=== PATIENT | male | born 1955 | race Caucasian/White ===

== ENCOUNTER 2021-11-18 01:46 | Inpatient (IN) | payer OTHER, SELFPAY ==
--- OUTSIDE RECORDS SUMMARY | 2021-11-18 01:48 | XMS REPORT | Continuity of Care Document ---
:1955 Author Organization [facility] t Address [address] [place] [address] Care Team Providers Name Role Phone GETACHEW VARGAS Attending Clinician Unavailable GETACHEW VARGAS Admitting Clinician Unavailable Payers Payer Name Policy Type Policy Number Effective Date Expiration Date [id number] 00:00:00 POS/PPO/EPO Problems This patient has no known problems. Allergies, Adverse Reactions, Alerts Allergy Allergy Status Severity Reaction(s) Onset Inactive Treating Comm ents Source Name Type Date Date Clinician NO KNOWN Allergy Active [facility] Medications This patient has no known medications. Vital Signs Vital Name Observation Time Observation Value Comments Source WEIGHT 2021-01-15 10:20:00 98.431 kg HEIGHT 2021-01-15 10:20:00 177.8 cm WEIGHT 2021-01-15 10:20:00 98.431 kg HEIGHT 2021-01-15 10:20:00 177.8 cm WEIGHT 2021-01-14 14:46:00 101.606 kg HEIGHT 2021-01-14 14:46:00 177.8 cm WEIGHT 2021-01-14 14:46:00 101.606 kg HEIGHT 2021-01-14 14:46:00 177.8 cm Procedures This patient has no known procedures. Encounters Start End Encounter Admission Attending Care Care Encounter Source Date/Time Date/Time Type Type Clinicians Facility Department ID 2021-08-17 Outpatient [facility] [id number] [facility] 06:37:32 2021-01-14 2021-01-14 Outpatient [facility] [id number] [facility] 00:00:00 00:00:00 Results Test Description Test Time Test Comments Results Result Comments Source SARS-COV2/RT-PCR ([facility]) 2021-01-15 00:21:00 Test Item Value Reference Range Interpretation Comme nts SARS-COV2/RT-PCR (test code = 1987475) Negative Not Detected, N egative, See external report for linked test SARS-COV-2 PERFORMING LAB (test code = BSC JAYDA [id number]) Negative result for this test determines that SARS-CoV-2 RNA was not present in the specimen above the Limit of Detection (LOD). However, Negative results do not preclude SARS-CoV-2 infection and should not be used as the sole basis for treatment or patient management decisions. Negative results mustbe combined with clinical observations, patient history, and epidemiological information. A false negative result may occur if a specimen is improperly collected, transported or handled. A false negative result should be considered if patient's recent exposures or clinical presentation indicate that COVID-19 (SARS-CoV-2) is likely and diagnostic tests for other causes of illness are negative. Re-testing should be considered in cases of suspected false negatives.The limit of detection for this assay is 100 copies/mL.This SARS CoV-2 test is a real-time RT-PCR test intended for the qualitative detection of nucleic acid from SARS-CoV-2 in a nasopharyngeal swab specimen collected from individuals susp ected of COVID-19 by their healthcare provider.This test has not been Food and Drug Administration (FDA) cleared or approved. This is a modified version of an approved Emergency Use Authorization (EUA) and is in the process of review by the FDA. Once authorized by the FDA, the issued EUA will be effective until the declaration that circumstances exist justifying the authorization of the emergency use of in vitro diagnostic tests for detection and/or diagnosis of COVID-19 is terminated under Section 564(b)(2) of the Act or the EUA is revoked under Section 564(g) of the Act.Testing was performed using the [employer] SARS-CoV-2 assay.Fact Sheet for Healthcare Providers:https://www.[employer] Gateway/fili/ US_HUDV-WjR-2_UZM_Astx_Oeuiz_88-397291.pdfFact Sheet for Healthcare Patients:https://www.[employer].ab surinder/fili/KE_GMNE-AyM-9_Oqrnvns_Vmzv_Abvkw_VT_17-232789Y9.pdfPerforming Laboratory:[facility] [place] [address] BASIC METABOLIC [id number] 15:36:00 Test Item Value Reference Range Interpretation Comments SODIUM (BEAKER) 140 meq/L 136-145 (test code = 381) POTASSIUM (BEAKER) 4.2 meq/L 3.5-5.1 (test code = 379) CHLORIDE (BEAKER) 107 meq/L 98-107 (test code = 382) CO2 (BEAKER) (test 25 meq/L 22-29 code = 355) BLOOD UREA NITROGEN 12 mg/dL 7-21 (BEAKER) (test code = 354) CREATININE (BEAKER) 0.97 mg/dL 0.57-1.25 (test code = 358) GLUCOSE RANDOM 149 mg/dL 70-105 H (BEAKER) (test code = 652) CALCIUM (BEAKER) 8.6 mg/dL 8.4-10.2 (test code = 697) EGFR (BEAKER) (test 78 mL/min/1.73 ESTIMA JOHAN GFR IS code = 1092) sq m NOT ACCURATE CREATININE CLEARANCE IN PREDICTING GLOMERULAR FILTRATION RATE . ESTIMATED GFR I S NOT APPLICABLE FOR DIALYSIS PATIEN TS. Machine Set Up ID - ROSEMARY FPROTHROMBIN [id number] 15:34:00 Test Item Value Reference Range Interpretation Comments PROTIME (BEAKER) 13.6 seconds 11.9-14.2 (test code = 759) INR (BEAKER) (test 1.07 See_Comment [Automat ed message] code = 370) The system [employer] generated this result transmitted ref erence range: <=5.90. The reference range was not used to int erpret this result as normal/abnormal . Effective 04/06/2019: PT Reference Range ChangeNew: 11.9-14.2 Previous: 11.7- 14.7RECOMMENDED COUMADIN/WARFARIN INR THERAPY RANGESSTANDARD DOSE: 2.0-3.0 Includes: PROPHYLAXIS for venous thrombosis, systemic embolization; TREATMENT for venous thrombosis and/or pulmonary embolus.HIGH RISK: Target INR is2.5-3.5 for patients wiht mechanical heart valves.CBC W/PLT COUNT & AUTO [id number] 15:22:00 Test Item Value Reference Range Interpretation Comments WHITE BLOOD CELL COUNT (BEAKER) 6.2 K/ L 3.5-10.5 (test code = 775) RED BLOOD CELL COUNT (BEAKER) 4.88 M/ L 4.63-6.08 (test code = 761) HEMOGLOBIN (BEAKER) (test code = 11.5 GM/DL 13.7-17.5 L 410) HEMATOCRIT (BEAKER) (test code = 37.8 % 40.1-51.0 L 411) MEAN CORPUSCULAR VOLUME (BEAKER) 77.5 fL 79.0-92.2 L (test code = 753) MEAN CORPUSCULAR HEMOGLOBIN 23.6 pg 25.7-32.2 L (BEAKER) (test code = 751) MEAN CORPUSCULAR HEMOGLOBIN CONC 30.4 GM/DL 32.3-36.5 L (BEAKER) (test code = 752) RED CELL DISTRIBUTION WIDTH 18.6 % 11.6-14.4 H (BEAKER) (test code = 412) PLATELET COUNT (BEAKER) (test 225 K/CU MM 150-450 code = 756) MEAN PLATELET VOLUME (BEAKER) 9.4 fL 9.4-12.4 (test code = 754) NUCLEATED RED BLOOD CELLS 0 /100 WBC 0-0 (BEAKER) (test code = 413) NEUTROPHILS RELATIVE PERCENT 57 % (BEAKER) (test code = 429) LYMPHOCYTES RELATIVE PERCENT 24 % (BEAKER) (test code = 430) MONOCYTES RELATIVE PERCENT 13 % (BEAKER) (test code = 431) EOSINOPHILS RELATIVE PERCENT 4 % (BEAKER) (test code = 432) BASOPHILS RELATIVE PERCENT 2 % (BEAKER) (test code = 437) NEUTROPHILS ABSOLUTE COUNT 3.52 K/ L 1.78-5.38 (BEAKER) (test code = 670) LYMPHOCYTES ABSOLUTE COUNT 1.46 K/ L 1.32-3.57 (BEAKER) (test code = 414) MONOCYTES ABSOLUTE COUNT (BEAKER) 0.81 K/ L 0.30-0.82 (test code = 415) EOSINOPHILS ABSOLUTE COUNT 0.24 K/ L 0.04-0.54 (BEAKER) (test code = 416) BASOPHILS ABSOLUTE COUNT (BEAKER) 0.11 K/ L 0.01-0.08 H (test code = 417) IMMATURE GRANULOCYTES-RELATIVE 1 % 0-1 PERCENT (BEAKER) (test code = 2801)
[2021-11-18] MEDS ORDERED: NA CHLORIDE 0.9% 1,000 ML ONE ×2 (03:22→06:15)
[2021-11-18 03:36] LABS: Protime INR 1.07
[2021-11-18 03:47] LABS: ALT/SGPT 32 U/L (12-78); AST/SGOT 16 U/L (15-37); Albumin 3.2 g/dL (3.4-5.0); Alkaline Phosphatase 78 U/L (45-117); BUN Blood Urea Nitrogen 14 mg/dL (7-18); Bicarbonate 24 mmol/L (21-32); Bilirubin Direct 0.2 mg/dL (0-0.2); Bilirubin Total 0.4 mg/dL (0.2-1.0); Glucose Level 130 mg/dL (74-106); Magnesium 2.3 mg/dL (1.8-2.4); NT PRO-BNP 255 pg/mL (<125); Sodium Level 141 mmol/L (136-145); Troponin (Emerg Dept Use Only) < 0.02 ng/mL (0.0-0.045)
[2021-11-18] MEDS ORDERED: APIXABAN 5 MG TABLET ONE (03:47)
[2021-11-18 03:59] LABS: Absolute Lymphocytes (CBC) 2.6 K/uL (0.7-4.9); Hematocrit 46.5 % (39.6-49.0); Lymphocytes % 33.5 % (15.3-44.8); MPV 7.8 fL (7.6-11.3); RBC Red Blood Cell Count 5.16 M/uL (4.33-5.43)
[2021-11-18] MEDS ORDERED: HEPARIN 5000 UNIT/ML 1 ML VIAL ONE (06:13)
[2021-11-18] MEDS ORDERED: HEPARIN/D5W 25,000 UNIT/500 ML BAG IV ONE (06:16)
--- NOTE | 2021-11-18 06:48 | ER ---
Nurse's Notes [facility] Name: Maldonado Reynolds Age: 66 yrs Sex: Male : 1955 Arrival Date: 11/18/2021 Time: 01:50 Bed 20 Private MD: Diagnosis: Other pulmonary embolism with acute cor pulmonale-SADDLE;Acute embolism and thrombosis of other specified deep vein of right lower extremity Presentation: 11/18 02:27 Chief complaint: Patient states: left ear pain worsening in severity. describes as lg3 stabbing. no medications taken at home. ear pain started yesterday. right calf swelling with pain radiating up towards groin. swelling started approximately 2 days ago. 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 took a xarelto on Thursday and Thursday that he had "left over" from previous confirmed DVT. Coronavirus screen: Client denies travel out of the [place] in the last 14 days. At this time, the client does not indicate any symptoms associated with coronavirus-19. Ebola Screen: No symptoms or risks identified at this time. Initial Sepsis Screen: Does the patient meet any 2 criteria? No. Patient's initial sepsis screen is negative. Does the patient have a suspected source of infection? No. Patient's initial sepsis screen is negative. Risk Assessment: Do you want to hurt yourself or someone else? Patient reports no desire to harm self or others. Onset of symptoms was November 16, 2021. 02:27 Method Of Arrival: Ambulatory lg3 02:27 Acuity: EARLINE 3 lg3 Triage Assessment: 02:33 General: Appears in no apparent distress. comfortable, Behavior is calm, cooperative. lg3 Pain: Complains of pain in left ear. Pain: Complains of pain in left leg Pain radiates to groin. EENT: No deficits noted. Neuro: Level of Consciousness is awake, alert, obeys commands, Oriented to person, place, time, situation, Speech is normal. Cardiovascular: Capillary refill < 3 seconds JVD is absent Patient's skin is warm and dry. Respiratory: Airway is patent Trachea midline Respiratory effort is even, unlabored, Respiratory pattern is regular, symmetrical. GI: No signs and/or symptoms were reported involving the gastrointestinal system. : No signs and/or symptoms were reported regarding the genitourinary system. Derm: Reports swelling to right calf. Musculoskeletal: Range of motion: intact in all extremities. Historical: - Allergies: 02:33 No Known Allergies; lg3 - Home Meds: 02:33 Wellbutrin 100 mg Oral tab 2 tab 2 times per day [Active]; Nexium 40 mg Oral cpDR 1 cap lg3 once daily [Active]; verapamil 80 mg Oral tab 1 tab 2x daily [Active]; - PSHx: 02:33 right foot surgery; gastric bypass; cardiac ablasion; lg3 - Immunization history:: Adult Immunizations up to date, Client reports receiving the Sohail \\T\\ Sohail single-dose vaccine. Date received February 01, 2021. - Social history:: Smoking status: Patient denies any tobacco usage or history of. Screenin:04 Abuse screen: Denies threats or abuse. Denies injuries from another. Nutritional raymundo screening: No deficits noted. Tuberculosis screening: No symptoms or risk factors identified. Fall Risk None identified. Exposure risk/Travel Screening: Has been out of the country: The pt traveled on a 16 hour flight from [facility], on the Oct. He reports,"I didn't walk around much". . Assessment: 03:04 Reassessment: Patient appears in no apparent distress at this time. General: Appears in raymundo no apparent distress. comfortable, Behavior is calm, cooperative, appropriate for age. Pain: Denies pain. Cardiovascular: Reports The pt has swelling to bilateral lower ext, rt>lt. The pt denies any pain to legs. Respiratory: No deficits noted. GI: No deficits noted. : No deficits noted. EENT: Reports Pt reports piercing ear pain to left ear x 1 day. . 06:44 General: The pt and his were informed that he has a PE. The pt and his raymundo acknowledged understanding and tx began. . 19:30 Reassessment: Patient appears in no apparent distress at this time. No changes from mk previously documented assessment. Patient and/or family updated on plan of care and expected duration. Pain level reassessed. this RN received report from previous RN. 19:30 General: Appears comfortable. Pain: Denies pain. Cardiovascular: Reports Denies chest mk pain, lightheadedness, shortness of breath, Heart tones S1 S2 present Capillary refill < 3 seconds fingers toes Patient's skin is warm and dry. Pulses are 2+ in right radial artery, right dorsalis pedis artery, left radial artery and left dorsalis pedis artery Edema is absent. Rhythm is sinus rhythm. GI: Abdomen is flat, non-distended, Bowel sounds present X 4 quads. : Urine is clear. Derm: No signs and/or symptoms reported regarding the dermatologic system. Musculoskeletal: Capillary refill < 3 seconds, fingers. toes. Range of motion: intact in all extremities. 20:30 Reassessment: No changes from previously documented assessment. Patient and/or family mk updated on plan of care and expected duration. Pain level reassessed. Patient is alert, oriented x 3, equal unlabored respirations, skin warm/dry/pink. 21:30 Reassessment: Patient appears in no apparent distress at this time. No changes from mk previously documented assessment. Patient and/or family updated on plan of care and expected duration. Pain level reassessed. Patient is alert, oriented x 3, equal unlabored respirations, skin warm/dry/pink. 22:30 Reassessment: No changes from previously documented assessment. Patient and/or family mk updated on plan of care and expected duration. Pain level reassessed. Patient is alert, oriented x 3, equal unlabored respirations, skin warm/dry/pink. 23:30 Reassessment: Patient appears in no apparent distress at this time. No changes from mk previously documented assessment. Patient and/or family updated on plan of care and expected duration. Pain level reassessed. 11/19 00:30 Reassessment: Patient appears in no apparent distress at this time. No changes from mk previously documented assessment. Patient and/or family updated on plan of care and expected duration. Pain level reassessed. 01:30 Reassessment: Patient appears in no apparent distress at this time. Patient and/or mk family updated on plan of care and expected duration. Pain level reassessed. Patient is alert, oriented x 3, equal unlabored respirations, skin warm/dry/pink. 02:30 Reassessment: No changes from previously documented assessment. Patient and/or family mk updated on plan of care and expected duration. Pain level reassessed. Patient is alert, oriented x 3, equal unlabored respirations, skin warm/dry/pink. 03:16 Reassessment: No changes from previously documented assessment. Patient and/or family mk updated on plan of care and expected duration. Pain level reassessed. Patient is alert, oriented x 3, equal unlabored respirations, skin warm/dry/pink. 04:30 Reassessment: No changes from previously documented assessment. Patient and/or family mk updated on plan of care and expected duration. Pain level reassessed. Patient is alert, oriented x 3, equal unlabored respirations, skin warm/dry/pink. 05:30 Reassessment: No changes from previously documented assessment. Patient and/or family mk updated on plan of care and expected duration. Pain level reassessed. Patient is alert, oriented x 3, equal unlabored respirations, skin warm/dry/pink. 06:30 Reassessment: No changes from previously documented assessment. Patient and/or family mk updated on plan of care and expected duration. Pain level reassessed. Patient is alert, oriented x 3, equal unlabored respirations, skin warm/dry/pink. Vital Signs: 11/18 02:27 BP 136 / 89; Pulse 75; Resp 18; Temp 97.9(O); Pulse Ox 97% on R/A; Weight 88.45 kg (R); lg3 Height 5 ft. 10 in. (177.80 cm) (R); Pain 3/10; 03:16 BP 132 / 86; Pulse 73; Resp 18; Temp 98.6; Pulse Ox 100% on R/A; Pain 0/10; raymundo 04:23 BP 139 / 75; Pulse 72; Resp 18; Temp 98.5; Pulse Ox 97% ; raymundo 05:21 BP 144 / 97; Pulse 73; Resp 18; Pulse Ox 96% on R/A; Pain 0/10; raymundo 06:45 BP 155 / 86; Pulse 76; Resp 18; Pulse Ox 100% on R/A; raymundo 09:42 BP 150 / 79; Pulse 67; Resp 18; Pulse Ox 97% on R/A; raymundo 19:30 BP 143 / 83; Pulse 70; Resp 18; Pulse Ox 95% on R/A; mk 20:30 BP 131 / 72; Pulse 70; Resp 18; Pulse Ox 97% on R/A; mk 21:30 BP 152 / 90; Pulse 69; Resp 18; Pulse Ox 98% on R/A; mk 22:30 BP 121 / 74; Pulse 74; Resp 18; Pulse Ox 96% on R/A; mk 23:30 BP 140 / 80; Pulse 69; Resp 18; Pulse Ox 98% on R/A; mk 11/19 00:30 BP 126 / 71; Pulse 69; Resp 21; Pulse Ox 95% on R/A; mk 01:30 BP 153 / 83; Pulse 71; Resp 18; Pulse Ox 96% on R/A; mk 02:30 BP 132 / 71; Pulse 81; Resp 19; Pulse Ox 97% on R/A; mk 04:30 BP 142 / 71; Pulse 71; Resp 18; Pulse Ox 98% on R/A; mk 05:30 BP 148 / 74; Pulse 78; Resp 18; Pulse Ox 98% on R/A; mk 11/18 02:27 Body Mass Index 27.98 (88.45 kg, 177.80 cm) lg3 ED Course: 11/18 01:50 Patient arrived in ED. bp1 02:33 Triage completed. lg3 02:33 Arm band placed on. lg3 02:49 Donny Mckeon MD is Attending Physician. dylan 03:11 No provider procedures requiring assistance completed. Inserted saline lock: 20 gauge raymundo in right antecubital area, using aseptic technique. 03:12 Troponin (emerg Dept Use Only) Sent. raymundo 03:12 PT-INR Sent. raymundo 03:12 NT PRO-BNP Sent. raymundo 03:12 Magnesium Sent. raymundo 03:12 LFT's Sent. raymundo 03:12 CBC with Diff Sent. rayumndo 03:12 Basic Metabolic Panel Sent. raymundo 03:16 US at bedside. raymundo 03:16 Patient has correct armband on for positive identification. Placed in gown. Bed in low raymundo position. Call light in reach. athletic monitor on. Pulse ox on. NIBP on. Noise minimized. 03:16 Inserted. raymundo 03:19 Anya Chi, RN is Primary Nurse. raymundo 03:41 US tech has completed her study. raymundo 03:44 US Extremity Venous W Compression Uday In Process Unspecified. EDMS 03:47 Basic Metabolic Panel Sent. raymundo 03:47 CBC with Diff Sent. raymundo 03:47 LFT's Sent. raymundo 03:47 Magnesium Sent. raymundo 03:47 NT PRO-BNP Sent. raymundo 03:47 Troponin (emerg Dept Use Only) Sent. raymundo 04:51 CT Chest For PE Angio In Process Unspecified. EDMS 05:16 XRAY Chest (1 view) In Process Unspecified. EDMS 06:12 Valdemar Anne MD is Referral Physician. dylan 06:44 Jorge Booker MD is Hospitalizing Provider. dylan 06:44 SARS-COV-2 RT PCR (Document "Date of Onset" if Symptomatic) Sent. raymundo 06:58 SARS-COV-2 RT PCR (Document "Date of Onset" if Symptomatic) Sent. raymundo 07:28 Primary Nurse role handed off by Anya Chi, IRMA bd 09:50 Echocardiogram with doppler done by emergency medical tech. tc 11:52 Inserted saline lock:. salter 19:57 Porsche Abreu, RN is Primary Nurse. mk 11/19 14:52 IV discontinued, intact, Pressure dressing applied. salter Administered Medications: 11/18 03:13 Drug: NS 0.9% 1000 ml Route: IV; Rate: 75 ml/hr; Site: right antecubital; raymundo 03:46 Drug: Eliquis (apixaban) 10 mg Route: PO; raymundo 04:23 Follow up: Response: No adverse reaction raymundo 04:34 Follow up: Response: No adverse reaction raymundo 05:21 Follow up: Response: No adverse reaction raymundo 06:15 Drug: Heparin (DVT/PE- Bolus per protocol) - HEParin 80 units/kg {Co-Signature: raymunod tw5 (Anya Chi RN).} Route: IVP; Site: right antecubital; 09:11 Follow up: Response: No adverse reaction raymundo 06:17 Drug: Heparin (DVT/PE Drip) 18 units/kg/hr - (HEParin 19820 units, D5W 500 ml) tw5 {Co-Signature: raymundo (Anya Chi RN).} Route: IV; Rate: per protocol; Site: right antecubital; 06:43 Drug: NS 0.9% 1000 ml Route: IV; Rate: 1 bolus; Site: right antecubital; raymundo Outcome: 06:12 Discharge ordered by . dylan 06:48 Decision to Hospitalize by Provider. dylan 11/19 14:52 Discharged to home salter Condition: good Discharge instructions given to patient, Prescriptions given X 3. 14:52 Patient left the ED. salter Signatures: Dispatcher [employer] [facility] Brittany Cheung Corey, MD MD cha Callis, Tiffany, EKG Tech EKG Ttc Carmen Deshpande, IRMA SOLIS lg3 Keyonna, Lnig Jackson tw5 Anya Chi RN RN bo Au-Stager, Heather, RN Porsche Betancur, IRMA fonseca Corrections: (The following items were deleted from the chart) :11/18 20:30 Reassessment: Patient appears in no apparent distress at this time. No mk changes from previously documented assessment. Patient and/or family updated on plan of care and expected duration. Pain level reassessed. 11/19 03:11/18 21:30 Reassessment: Patient appears in no apparent distress at this time. No mk changes from previously documented assessment. Patient and/or family updated on plan of care and expected duration. Pain level reassessed. 11/19 02:11/18 22:30 Reassessment: Patient appears in no apparent distress at this time. No mk changes from previously documented assessment. Patient and/or family updated on plan of care and expected duration. Pain level reassessed.
--- NOTE | 2021-11-18 06:49 | EDPHYS ---
Physician Documentation [facility] Name: Maldonado Reynolds Age: 66 yrs Sex: Male : 1955 Arrival Date: 11/18/2021 Time: 01:50 Bed 20 Private MD: MAGGIE Physician Donny Mckeon HPI: 11/18 02:58 This 66 yrs old Male presents to ER via Ambulatory with complaints of Leg dylan Swelling, Ear Pain. 02:58 The patient presents with pain, that is acute. The complaints affect the left ear. dylan Onset: The symptoms/episode began/occurred yesterday. Modifying factors: The symptoms are alleviated by nothing, the symptoms are aggravated by nothing. Associated signs and symptoms: The patient has no apparent associated signs or symptoms. Severity of symptoms: At their worst the symptoms were mild in the emergency department the symptoms are unchanged. The patient has not experienced similar symptoms in the past. Historical: - Allergies: 02:33 No Known Allergies; lg3 - Home Meds: 02:33 Wellbutrin 100 mg Oral tab 2 tab 2 times per day [Active]; Nexium 40 mg Oral cpDR 1 cap lg3 once daily [Active]; verapamil 80 mg Oral tab 1 tab 2x daily [Active]; - PSHx: 02:33 right foot surgery; gastric bypass; cardiac ablasion; lg3 - Immunization history:: Adult Immunizations up to date, Client reports receiving the Sohail \\T\\ Sohail single-dose vaccine. Date received February 01, 2021. - Social history:: Smoking status: Patient denies any tobacco usage or history of. ROS: 03:01 Constitutional: Negative for fever, chills, and weight loss, Eyes: Negative for injury, dylan pain, redness, and discharge, Neck: Negative for injury, pain, and swelling, Cardiovascular: Negative for chest pain, palpitations, and edema, Respiratory: Negative for shortness of breath, cough, wheezing, and pleuritic chest pain, Abdomen/GI: Negative for abdominal pain, nausea, vomiting, diarrhea, and constipation, Back: Negative for injury and pain, : Negative for injury, bleeding, discharge, and swelling, Skin: Negative for injury, rash, and discoloration, Neuro: Negative for headache, weakness, numbness, tingling, and seizure, Psych: Negative for depression, anxiety, suicide ideation, homicidal ideation, and hallucinations, Allergy/Immunology: Negative for hives, rash, and allergies, Endocrine: Negative for neck swelling, polydipsia, polyuria, polyphagia, and marked weight changes, Hematologic/Lymphatic: Negative for swollen nodes, abnormal bleeding, and unusual bruising. 03:01 ENT: Positive for ear pain. 03:01 MS/extremity: Positive for pain, swelling, of the right leg and left leg. Exam: 03:01 Constitutional: This is a well developed, well nourished patient who is awake, alert, dylan and in no acute distress. Head/Face: Normocephalic, atraumatic. Eyes: Pupils equal round and reactive to light, extra-ocular motions intact. Lids and lashes normal. Conjunctiva and sclera are non-icteric and not injected. Cornea within normal limits. Periorbital areas with no swelling, redness, or edema. ENT: Nares patent. No nasal discharge, no septal abnormalities noted. Tympanic membranes are normal and external auditory canals are clear. Oropharynx with no redness, swelling, or masses, exudates, or evidence of obstruction, uvula midline. Mucous membranes moist. Neck: Trachea midline, no thyromegaly or masses palpated, and no cervical lymphadenopathy. Supple, full range of motion without nuchal rigidity, or vertebral point tenderness. No Meningismus. Chest/axilla: Normal chest wall appearance and motion. Nontender with no deformity. No lesions are appreciated. Cardiovascular: Regular rate and rhythm with a normal S1 and S2. No gallops, murmurs, or rubs. Normal PMI, no JVD. No pulse deficits. Respiratory: Lungs have equal breath sounds bilaterally, clear to auscultation and percussion. No rales, rhonchi or wheezes noted. No increased work of breathing, no retractions or nasal flaring. Abdomen/GI: Soft, non-tender, with normal bowel sounds. No distension or tympany. No guarding or rebound. No evidence of tenderness throughout. Back: No spinal tenderness. No costovertebral tenderness. Full range of motion. Male : Normal genitalia with no discharge or lesions. Skin: Warm, dry with normal turgor. Normal color with no rashes, no lesions, and no evidence of cellulitis. Neuro: Awake and alert, GCS 15, oriented to person, place, time, and situation. Cranial nerves II-XII grossly intact. Motor strength 5/5 in all extremities. Sensory grossly intact. Cerebellar exam normal. Normal gait. Psych: Awake, alert, with orientation to person, place and time. Behavior, mood, and affect are within normal limits. 03:01 Musculoskeletal/extremity: Extremities: grossly normal except: noted in the right leg and left leg: pain, swelling, ROM: intact in all extremities, full active range of motion, full passive range of motion, Circulation is intact in all extremities. Sensation intact. Compartment Syndrome exam of affected extremity: is normal. DVT Exam: no pain, no tenderness, negative Homans' sign noted on exam, no appreciated bluish discoloration, no erythema, no increased warmth, swelling. 03:22 ECG was reviewed by the Attending Physician. dylan Vital Signs: 02:27 BP 136 / 89; Pulse 75; Resp 18; Temp 97.9(O); Pulse Ox 97% on R/A; Weight 88.45 kg (R); lg3 Height 5 ft. 10 in. (177.80 cm) (R); Pain 3/10; 03:16 BP 132 / 86; Pulse 73; Resp 18; Temp 98.6; Pulse Ox 100% on R/A; Pain 0/10; raymundo 04:23 BP 139 / 75; Pulse 72; Resp 18; Temp 98.5; Pulse Ox 97% ; raymundo 05:21 BP 144 / 97; Pulse 73; Resp 18; Pulse Ox 96% on R/A; Pain 0/10; raymundo 06:45 BP 155 / 86; Pulse 76; Resp 18; Pulse Ox 100% on R/A; raymundo 09:42 BP 150 / 79; Pulse 67; Resp 18; Pulse Ox 97% on R/A; raymundo 19:30 BP 143 / 83; Pulse 70; Resp 18; Pulse Ox 95% on R/A; mk 20:30 BP 131 / 72; Pulse 70; Resp 18; Pulse Ox 97% on R/A; mk 21:30 BP 152 / 90; Pulse 69; Resp 18; Pulse Ox 98% on R/A; mk 22:30 BP 121 / 74; Pulse 74; Resp 18; Pulse Ox 96% on R/A; mk 23:30 BP 140 / 80; Pulse 69; Resp 18; Pulse Ox 98% on R/A; 11/19 00:30 BP 126 / 71; Pulse 69; Resp 21; Pulse Ox 95% on R/A; mk 01:30 BP 153 / 83; Pulse 71; Resp 18; Pulse Ox 96% on R/A; mk 02:30 BP 132 / 71; Pulse 81; Resp 19; Pulse Ox 97% on R/A; mk 04:30 BP 142 / 71; Pulse 71; Resp 18; Pulse Ox 98% on R/A; mk 05:30 BP 148 / 74; Pulse 78; Resp 18; Pulse Ox 98% on R/A; 11/18 02:27 Body Mass Index 27.98 (88.45 kg, 177.80 cm) lg3 MDM: 11/18 02:49 Patient medically screened. [facility] 03:09 Differential diagnosis: otitis media, otitis externa. Data reviewed: vital signs, [facility] nurses notes, lab test result(s), EKG, radiologic studies, doppler, plain films. Data interpreted: monitor technician: rate is 75 beats/min, rhythm is regular, Pulse oximetry: on room air is 97 %. Test interpretation: by ED physician or midlevel provider: ECG, plain radiologic studies. Counseling: I had a detailed discussion with the patient and/or guardian regarding: the historical points, exam findings, and any diagnostic results supporting the discharge/admit diagnosis, lab results, radiology results, the need for outpatient follow up, for definitive care, a plum packer, a family practitioner. 11/18 02:57 Order name: Basic Metabolic Panel; Complete Time: 03:54 [facility] 11/18 02:57 Order name: CBC with Diff [facility] 11/18 02:57 Order name: LFT's; Complete Time: 03:54 [facility] 11/18 02:57 Order name: Magnesium; Complete Time: 03:54 [facility] 11/18 02:57 Order name: NT PRO-BNP; Complete Time: 03:54 [facility] 11/18 02:57 Order name: PT-INR; Complete Time: 03:42 [facility] 11/18 02:57 Order name: Troponin (emerg Dept Use Only); Complete Time: 03:54 [facility] 11/18 06:12 Order name: SARS-COV-2 RT PCR (Document "Date of Onset" if Symptomatic) [facility] 11/18 10:11 Order name: Comprehensive Metabolic Panel [facility] 11/18 10:11 Order name: Comprehensive Metabolic Panel [facility] 11/18 10:11 Order name: NT PRO-BNP [facility] 11/18 10:11 Order name: NT PRO-BNP [facility] 11/18 10:11 Order name: Troponin I [facility] 11/18 10:11 Order name: Troponin I [facility] 11/18 02:57 Order name: XRAY Chest (1 view) [facility] 11/18 02:57 Order name: US Extremity Venous W Compression Uday [facility] 11/18 03:42 Order name: CT Chest For PE Angio [facility] 11/18 06:11 Order name: Echo w/ Doppler [facility] 11/18 22:00 Order name: PTT, Activated Partial Thromb [facility] 11/19 01:46 Order name: CBC with Automated Diff [facility] 11/19 06:25 Order name: CBC with Automated Diff [facility] 11/19 06:49 Order name: Protime (+INR) [facility] 11/19 06:49 Order name: PTT, Activated Partial Thromb [facility] 11/19 07:56 Order name: Troponin High Sensitivity [facility] 11/18 02:57 Order name: EKG; Complete Time: 02:58 [facility] 11/18 02:57 Order name: Cardiac monitoring; Complete Time: 03:13 [facility] 11/18 02:57 Order name: EKG - Nurse/Tech; Complete Time: 03:13 [facility] 11/18 02:57 Order name: IV Saline Lock; Complete Time: 03:13 [facility] 11/18 02:57 Order name: Labs collected and sent; Complete Time: 03:13 [facility] 11/18 02:57 Order name: O2 Per Protocol; Complete Time: 03:13 [facility] 11/18 02:57 Order name: O2 Sat Monitoring; Complete Time: 03:12 [facility] 11/18 10:11 Order name: CONS Physician Consult [facility] 11/18 10:11 Order name: Heart Healthy; Complete Time: 11:05 [facility] 11/18 11:03 Order name: Diet Heart Healthy; Complete Time: 11:04 11/18 20:39 Order name: Labs - recollect needed: blue top needed; Complete Time: 22:31 mw2 EC:22 Rate is 69 beats/min. Rhythm is regular. QRS [place] is Normal. OK interval is normal. QRS dylan interval is normal. QT interval is normal. No Q waves. T waves are Normal. No ST changes noted. Clinical impression: NSR w/ Non-specific ST/T Changes and No evidence of ischemia. Interpreted by me. Reviewed by me. Administered Medications: 03:13 Drug: NS 0.9% 1000 ml Route: IV; Rate: 75 ml/hr; Site: right antecubital; raymundo 03:46 Drug: Eliquis (apixaban) 10 mg Route: PO; raymundo 04:23 Follow up: Response: No adverse reaction raymundo 04:34 Follow up: Response: No adverse reaction raymundo 05:21 Follow up: Response: No adverse reaction raymundo 06:15 Drug: Heparin (DVT/PE- Bolus per protocol) - HEParin 80 units/kg {Co-Signature: raymundo tw5 (Anya Chi RN).} Route: IVP; Site: right antecubital; 09:11 Follow up: Response: No adverse reaction raymundo 06:17 Drug: Heparin (DVT/PE Drip) 18 units/kg/hr - (HEParin 94876 units, D5W 500 ml) tw5 {Co-Signature: raymundo (Anya Chi RN).} Route: IV; Rate: per protocol; Site: right antecubital; 06:43 Drug: NS 0.9% 1000 ml Route: IV; Rate: 1 bolus; Site: right antecubital; raymundo Disposition Summary: 11/18/21 06:48 Hospitalization Ordered Hospitalization Status: Inpatient Admission dylan Provider: Jorge Booker dylan Condition: Fair(11/18/21 06:48) dylan Problem: new(11/18/21 06:48) dylan Symptoms: have improved(11/18/21 06:48) dylan Bed/Room Type: Standard dylan Location: [facility] ER HOLD(11/18/21 09:53) Room Assignment: ERHOLD-(11/18/21 09:53) iw Diagnosis - Other pulmonary embolism with acute cor pulmonale - SADDLE dylan - Acute embolism and thrombosis of other specified deep vein of right lower extremity dylan Forms: - Medication Reconciliation Form dylan - SBAR form dylan Signatures: Dispatcher [employer] Donny Lea MD MD cha Williams, Irene RN IRMA iw Mark Liang mw2 Carmen Deshpande RN RN lg3 Ling Catherine tw5 Anya Chi RN RN bo Brenda O'Farrell RN bo Corrections: (The following items were deleted from the chart) 06:12 06:12 Home dylan dylan 06:12 06:12 new dylan dylan 06:12 06:12 have improved dylan dylan 06:12 06:12 Stable dylan dylan 06:12 06:12 Edema, unspecified dylan dylan 06:12 06:12 Acute embolism and thrombosis of deep veins of lower extremity dylan [facility] 53 06:48 Telemetry/MedSurg (Inpatient) dylan iw 09:53 06:48 dylan 10:18 10:11 Echo with Doppler ordered. EDMS EDMS
--- NOTE | 2021-11-18 08:17 | RAD REPORT ---
EXAM DESCRIPTION: USExtrem Venous W Compress Bil11/18/2021 3:44 am CLINICAL HISTORY: Leg swelling COMPARISON: 2017 FINDINGS: Echogenic material consistent with acute thrombus is present within the distal right super ficial femoral and right popliteal veins. Veins are not compressible. The right common femoral and ri ght posterior tibial veins are patent The left common femoral, superficial femoral, popliteal and posterior tibial veins are compressible a nd demonstrate augmentation. Doppler demonstrates good flow. IMPRESSION: Acute thrombus distal right superficial femoral and right popliteal veins.
--- NOTE | 2021-11-18 08:36 | RAD REPORT ---
EXAM DESCRIPTION: Karyn Single View11/18/2021 5:16 am CLINICAL HISTORY: Cough COMPARISON: 2013 FINDINGS: The lungs appear clear of acute infiltrate. The heart is mildly enlarged IMPRESSION: No acute abnormalities displayed
[2021-11-18] MEDS ORDERED: ONDANSETRON 4 MG/2 ML VIAL IV PRN (10:08)
[2021-11-18] MEDS ORDERED: ACETAMINOPHEN 500 MG TAB PO PRN (10:08)
[2021-11-18] MEDS ORDERED: MORPHINE 2 MG/ML SYR IV PRN (10:08)
[2021-11-18] MEDS ORDERED: HEPARIN/D5W 25,000 UNIT/500 ML BAG IV SCH (11:00)
[2021-11-18] MEDS ORDERED: NA CHLORIDE 0.9% 1,000 ML IV SCH (11:00)
[2021-11-18 12:02] VITALS: BMI 27.8
[2021-11-18] MEDS: RIVAROXABAN 15 MG TABLET PO SCH ×2 (12:20→21:55)
--- NOTE | 2021-11-18 12:23 | P.CNS ---
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 and takes Xarelto on a as needed basis Allergies No Known Allergies Allergy (Unverified 11/18/21 11:20) Home Medications: Rivaroxaban [Xarelto] 15 mg PO DAILY #52 tablet 11/18/21 Rivaroxaban [Xarelto] 20 mg PO DAILY 90 Days #90 tab 11/18/21 - Past Medical/Surgical History -: DVT - Social History Alcohol use: No CD- Drugs: No Caffeine use: No Review of Systems 10-point ROS is otherwise unremarkable Physical Examination General: Alert, In no apparent distress, Oriented x3 HEENT: Atraumatic Neck: Supple Respiratory: Clear to auscultation bilaterally Cardiovascular: Edema (Right leg is more swollen than the left) Laboratory Data (last 24 hrs) 11/18/21 03:11: PT 12.3, INR 1.07 11/18/21 03:11: WBC 7.70, Hgb 15.7, Hct 46.5, Plt Count 163 11/18/21 03:11: Sodium 141, Potassium 4.0, BUN 14, Creatinine 0.90, Glucose 130 H, Magnesium 2.3, Total Bilirubin 0.4, AST 16, ALT 32, Alkaline Phosphatase 78 - Problems (1) Deep vein thrombosis (DVT) with pulmonary embolism present on admission Current Visit: Yes Status: Acute Plan: Patient is 66 years of age admitted with a right-sided DVT was found to have pulmonary embolism patient is COVID-positive asymptomatic currently doing well vital signs are stable oxygenation satisfactory plan to ambulate resume Xarelto full anticoagulant dose advised the patient about lifelong anticoagulation
--- NOTE | 2021-11-18 12:27 | RAD REPORT ---
EXAM DESCRIPTION: CT - Chest For Pe Angio - 11/18/2021 7:14 am ADDENDUM #1 THIS REPORT CONTAINS FINDINGS THAT MAY BE CRITICAL TO PATIENT CARE: The findings were verbally discu ssed via telephone conference with Dr. Mckeon 6:01 AM central time November 18, 2021. The results were acknowledged and understood. Electronically signed by: Layla Sevilla MD 11/18/2021 6:12 AM NEW PRODUCT TRAINER End of Addendum EXAM DESCRIPTION: CT Angiography Chest With Intravenous Contrast CLINICAL HISTORY: The patient is 66 years old and is Male; PE cough TECHNIQUE: Axial computed tomographic angiography images of the chest with intravenous contrast. S agittal and coronal reformatted images were created and reviewed. This CT exam was performed using one or more of the following dose reduction techniques: automated exposure control, adjustment of t he mA and/or kV according to patient size, and/or use of iterative reconstruction technique. MIP re constructed images were created and reviewed. COMPARISON: No relevant prior studies available. FINDINGS: Pulmonary arteries: Nonocclusive branching thrombus in the bilateral main pulmonary calvin concepcion with saddle embolus at the bifurcation of the main outflow tract. This thrombus extends into seg mental branches of the bilateral upper and lower lobes. Aorta: No acute findings. No thoracic aortic aneurysm. Lungs: No pulmonary consolidation or groundglass opacities to suggest pneumonia. Pleural space: Unremarkable. No significant effusion. No pneumothorax. Heart: Mild cardiac enlargement. No evidence of mild right ventricular strain. No significant pericardial effusion. Mediastinum: No pneumomediastinum. Bones/joints: No acute fracture. No dislocation. Soft tissues: Unremarkable. Lymph nodes: Unremarkable. No pathologically enlarged lymph nodes. Stomach and bowel: Previous gastric surgery. IMPRESSION: Positive PE study with central saddle embolus and evidence of right ventricular strain. See above. Electronically signed by: Layla Sevilla MD 11/18/2021 5:54 AM NEW PRODUCT TRAINER Due to temporary technical issues with the PACS/Fluency reporting system, reports are being signed by the in house radiologist without review as a courtesy to ensure prompt reporting. The interpreting r adiologist is fully responsible for the content of the report.
--- NOTE | 2021-11-18 19:06 | P.HP ---
Certification for Inpatient Patient admitted to: Inpatient With expected LOS: >2 Midnights Patient will require the following post-hospital care: None Practitioner: I am a practitioner with admitting privileges, knowledge of patient current condition, hospital course, and medical plan of care. Services: Services provided to patient in accordance with Admission requirements found in Title 42 Section 412.3 of the Code of Federal Regulations Patient History Date of Service: 11/18/21 Reason for admission: DVT/pulmonary embolism History of Present Illness: Patient is a 66yo who was admitted to the hospital with a DVT and saddle PE. Patient was positive for COVID pneumonia. Allergies No Known Allergies Allergy (Unverified 11/18/21 11:20) Home Medications: Rivaroxaban [Xarelto] 15 mg PO DAILY #52 tablet 11/18/21 Rivaroxaban [Xarelto] 20 mg PO DAILY 90 Days #90 tab 11/18/21 - Past Medical/Surgical History Has patient received pneumonia vaccine in the past: No -: DVT Past Surgical History: Patient denies surgical history - Family History Father Family History: Reviewed- Non-Contributory - Social History Smoking Status: Former smoker Alcohol use: No CD- Drugs: No Caffeine use: No Review of Systems 10-point ROS is otherwise unremarkable Physical Examination - Vital Signs Temperature: 98 F Blood Pressure: 140/80 Pulse: 88 Respirations: 22 Pulse Ox (%): 95 - Physical Exam General: Alert, In no apparent distress HEENT: Atraumatic, PERRLA, Mucous membr. moist/pink, EOMI, Sclerae nonicteric Neck: Supple, 2+ carotid pulse no bruit, No LAD, Without JVD or thyroid abnormality Respiratory: Clear to auscultation bilaterally, Normal air movement Cardiovascular: Regular rate/rhythm, Normal S1 S2 Gastrointestinal: Normal bowel sounds, No tenderness Musculoskeletal: No tenderness Integumentary: No rashes Neurological: Normal gait, Normal speech, Normal strength at 5/5 x4 extr, Normal tone, Normal affect Lymphatics: No axilla or inguinal lymphadenopathy - Studies Laboratory Data (last 24 hrs) 11/18/21 03:11: PT 12.3, INR 1.07 11/18/21 03:11: WBC 7.70, Hgb 15.7, Hct 46.5, Plt Count 163 11/18/21 03:11: Sodium 141, Potassium 4.0, BUN 14, Creatinine 0.90, Glucose 130 H, Magnesium 2.3, Total Bilirubin 0.4, AST 16, ALT 32, Alkaline Phosphatase 78 Assessment & Plan - Problems (Diagnosis) (1) Deep vein thrombosis (DVT) with pulmonary embolism present on admission Current Visit: Yes Status: Acute - Advance Directives Does patient have a Living Will: No Does patient have a Durable POA for Healthcare: No
[2021-11-18 21:52] VITALS: TEMP 98.9
[2021-11-19 01:44] LABS: Hematocrit 42.5 % (39.6-49.0); Lymphocytes % 31.1 % (15.3-44.8); MPV 7.7 fL (7.6-11.3); RBC Red Blood Cell Count 4.71 M/uL (4.33-5.43)
[2021-11-19] MEDS ORDERED: APIXABAN 5 MG TABLET PO SCH (02:00)
[2021-11-19 06:25] LABS: Absolute Lymphocytes (CBC) 1.7 K/uL (0.7-4.9); Hematocrit 42.8 % (39.6-49.0); MPV 7.6 fL (7.6-11.3); RBC Red Blood Cell Count 4.76 M/uL (4.33-5.43)
[2021-11-19 06:49] LABS: Protime INR 1.28
--- NOTE | 2021-11-19 07:19 | ECHO ---
HEIGHT: 5 ft 10 in WEIGHT: 194 lb 0 oz DATE OF STUDY: 11/30/[address]: Donny Mckeon MD 2-DIMENSIONAL: YES M.MODE: YES DOPPLER: YES COLOR FLOW: YES TDS: PORTABLE: DEFINITY: BUBBLE STUDY: DIAGNOSIS: SADDLE PERICARDIAL EMBOLISM CARDIAC HISTORY: CATHERIZATION: NO SURGERY: NO PROSTHETIC VALVE: NO PACEMAKER: NO MEASUREMENTS (cm) DIASTOLIC (NORMALS) SYSTOLIC (NORMALS) IVSd 1.0 (0.6-1.2) LA Diam 3.0 (1.9-4.0) LVEF 59% LVIDd 5.0 (3.5-5.7) LVIDs 3.4 (2.0-3.5) %FS 31% LVPWd 1.1 (0.6-1.2) Ao Diam 3.2 (2.0-3.7) 2 DIMENSIONAL ASSESSMENT: RIGHT ATRIUM: NORMAL LEFT ATRIUM: NORMAL RIGHT VENTRICLE: NORMAL LEFT VENTRICLE: NORMAL TRICUSPID VALVE: MILD TRICUSPID REGURGITATION MITRAL VALVE: MILD MITRAL REGURGITATION PULMONIC VALVE: MILD PULMONARY INSUFFIENCY AORTIC VALVE: NORMAL PERICARDIAL EFFUSION: NONE AORTIC ROOT: NORMAL LEFT VENTRICULAR WALL MOTION: NORMAL DOPPLER/COLOR FLOW: SEE BELOW COMMENTS: NORMAL LEFT VENTRICULAR EJECTION FRACTION 55-60% WITH NORMAL WALL MOTION. NORMAL RIGHT VENTRICULAR FUNCTION AND SIZE. MILD MITRAL REGURGITATION. MILD PULMONARY INSUFFIENCY AND MILD TRICUSPID REGURGITATION. TECHNOLOGIST: ILIANA LOUIS
[2021-11-19 07:51] LABS: Albumin 2.7 g/dL (3.4-5.0); Bilirubin Total 0.4 mg/dL (0.2-1.0); Potassium 3.9 mmol/L (3.5-5.1); Protein, Total 6.1 g/dL (6.4-8.2)
[2021-11-19 07:56] LABS: Troponin High Sensitivity 13.1 pg/mL (<58.9)
[2021-11-19] MEDS ORDERED: RIVAROXABAN 15 MG TABLET PO SCH (10:00)
[2021-11-19] MEDS ORDERED: METHYLPREDNISOLONE 125 MG INJ IV ONE (10:12)
[2021-11-19] MEDS ORDERED: METHYLPREDNISOLONE 125 MG INJ ONE (10:20)
[2021-11-19 15:32] VITALS: O2SAT 98
[2021-11-19 15:34] VITALS: BP 148/74
== END 2021-11-19 14:52 | disposition home or self-care (01) | DRG 175 ==
LOC: ER 01:46 → ERHOLD 10:08
PROVIDERS: ADMIT Hospitalist; ATTEND Hospitalist
DX: I26.92 Saddle embolus of pulmonary artery without acute cor pulmonale (principal); U07.1 COVID-19; J12.82 Pneumonia due to coronavirus disease 2019; I82.411 Acute embolism and thrombosis of right femoral vein; I82.431 Acute embolism and thrombosis of right popliteal vein; Z98.84 Bariatric surgery status; Z79.01 Long term (current) use of anticoagulants; Z79.899 Other long term (current) drug therapy; Z87.891 Personal history of nicotine dependence; Z86.718 Personal history of other venous thrombosis and embolism
CPT/HCPCS: 36415; 71045; 71275; 80048; 80053; 80076; 83735; 83880; 84484; 85025; 85610; 85730; 93005; 93306; 93970; 96374; 99285; J1644; J2930; J7030; Q9967; U0003

== ENCOUNTER 2021-11-23 23:55 | Emergency (ER) | payer OTHER ==
--- OUTSIDE RECORDS SUMMARY | 2021-11-23 23:59 | XMS REPORT | Continuity of Care Document ---
:1955 Author Organization [facility] t Address [address] [place] [address] Care Team Providers Name Role Phone GETACHEW VARGAS Attending Clinician Unavailable GETACHEW VARGAS Admitting Clinician Unavailable Payers Payer Name Policy Type Policy Number Effective Date Expiration Date [id number] 2020 00:00:00 POS/PPO/EPO Problems This patient has no known problems. Allergies, Adverse Reactions, Alerts Allergy Allergy Status Severity Reaction(s) Onset Inactive Treating Comm ents Source Name Type Date Date Clinician NO KNOWN Allergy Active [facility] Medications This patient has no known medications. [...] Department ID 2021-08-17 Outpatient [facility] Surgery [id number] [facility] 06:37:32 2021-01-14 2021-01-[address] [facility] [id number] [facility] 00:00:00 00:00:00 Results Test Description Test Time Test Comments Results Result Comments Source SARS-COV2/RT-PCR ([facility]) 2021-01-15 00:21:00 Test Item Value Reference Range Interpretation Comme nts SARS-COV2/RT-PCR (test code = 1781305) Negative Not Detected, N egative, See external report for linked test SARS-COV-2 PERFORMING LAB (test code = B[facility] JAYDA 8698454) Negative result for this test determines that [...] of the Act.Testing was performed using the [employer] SARS-CoV-2 assay.Fact Sheet for Healthcare Providers:https://www.[employer]/fili/ FP_LAME-BpT-4_KRF_Paeh_Kgogr_90-119776.pdfFact Sheet for Healthcare Patients:https://www.[employer].ab surinder/fili/XU_CBNP-ZwI-8_Eqtphbg_Qjrw_Abdwh_EQ_[email or web address].pdfPerforming Laboratory:[facility] [place] [address] BASIC METABOLIC [id number] 15:36:00 Test Item Value Reference Range Interpretation [...] S NOT APPLICABLE FOR DIALYSIS PATIEN TS. [facility] Hospitalist ID - ROSEMARY FPROTHROMBIN [id number] 15:34:00 Test Item Value Reference Range Interpretation Comments PROTIME (BEAKER) 13.6 seconds 11.9-14.2 (test code = 759) INR (BEAKER) (test 1.07 See_Comment [Automat ed message] code = 370) The system [employer] generated this result transmitted ref erence range: [...] mechanical heart valves.CBC W/PLT COUNT & AUTO [id number] 15:22:00 Test Item Value Reference Range Interpretation [...]
[2021-11-24 02:19] LABS: Urine Blood Negative (Negative); Urine Glucose Trace (Negative); Urine Protein Negative (Negative); Urine Specific Gravity >=1.030 (1.005-1.030); Urine pH 6.5 (5.0-7.0)
[2021-11-24 02:37] LABS: Absolute Lymphocytes (CBC) 1.8 K/uL (0.7-4.9); Lymphocytes % 17.5 % (15.3-44.8); MPV 7.7 fL (7.6-11.3); RBC Red Blood Cell Count 5.33 M/uL (4.33-5.43)
[2021-11-24 02:38] LABS: Protime INR 1.19
[2021-11-24 02:46] LABS: Urine Bacteria <20 /HPF (NONE SEEN); Urine Mucus 1+ /HPF (NONE SEEN); Urine RBC <5 /HPF (NONE SEEN)
[2021-11-24] MEDS ORDERED: NA CHLORIDE 0.9% 1,000 ML ONE (02:48)
[2021-11-24 02:55] LABS: Albumin 3.3 g/dL (3.4-5.0); Bilirubin Direct 0.2 mg/dL (0-0.2); Bilirubin Total 0.5 mg/dL (0.2-1.0)
--- NOTE | 2021-11-24 05:05 | ER ---
Nurse's Notes [facility] Name: Maldonado Reynolds Age: 66 yrs Sex: Male : 1955 Arrival Date: 11/23/2021 Time: 23:57 Bed 17 Private MD: Diagnosis: Upper abdominal pain, unspecified;Nausea with vomiting, unspecified Presentation: 11/24 00:15 Chief complaint: Patient states: C/o nausea and abdominal pain to the LUQ, vomiting in triage, reports last BM today but 'slightly constipated'. hx +PE, +covid (s/s started 11/09/21), +DVT on xarelto, gastric bypass. Coronavirus screen: Vaccine status:. Coronavirus screen: Vaccine status: Patient reports receiving the 2nd dose of the covid vaccine. Patient reports having had a previously documented Covid positive illness. November 09, 2021. Ebola Screen: Patient negative for fever greater than or equal to 101.5 degrees Fahrenheit, and additional compatible Ebola Virus Disease symptoms. Initial Sepsis Screen: Does the patient meet any 2 criteria? No. Patient's initial sepsis screen is negative. Does the patient have a suspected source of infection? No. Patient's initial sepsis screen is negative. Risk Assessment: Do you want to hurt yourself or someone else? Patient reports no desire to harm self or others. Onset of symptoms was November 24, 2021. 00:15 Method Of Arrival: Ambulatory 00:15 Acuity: EARLINE 3 Triage Assessment: 00:22 General: Appears in no apparent distress. Behavior is cooperative. Pain: Complains of pain in abdomen Pain currently is 6 out of 10 on a pain scale. Quality of pain is described as 'discomfort' Pain began gradually, Is continuous, Alleviated by vomiting. GI: Abdomen is flat, distended, Bowel sounds present X 4 quads. Reports upper abdominal pain, nausea, vomiting. Historical: - Home Meds: 00:32 Xarelto 15 mg oral tab 2 times per day [Active]; prednisone Oral [Active]; Wellbutrin mk 100 mg Oral tab 2 tab 2 times per day [Active]; verapamil 80 mg Oral tab 1 tab 2x daily [Active]; Nexium 40 mg Oral cpDR 1 cap once daily [Active]; azithromycin 500 mg oral tab [Active]; - PMHx: 00:32 Hypertensive disorder; mk - PSHx: 00:32 Gastric Bypass; cardiac ablasion; right foot surgery; mk - Immunization history:: Adult Immunizations up to date, Client reports receiving the 2nd dose of the Covid vaccine. - Social history:: Smoking status: . Screenin:22 Abuse screen: Denies threats or abuse. Nutritional screening: No deficits noted. Tuberculosis screening: No symptoms or risk factors identified. Fall Risk No fall in past 12 months (0 pts). No secondary diagnosis (0 pts). No IV (0 pts). Ambulatory Aid- None/Bed Rest/Nurse Assist (0 pts). Gait- Normal/Bed Rest/Wheelchair (0 pts) Mental Status- Oriented to own ability (0 pts). Total Vasquez Fall Scale indicates Low Risk Score (25-44 pts). Fall prevention measures have been instituted. Side Rails Up X 2 Family Present and informed to notify staff if they need to leave bedside. Assessment: 02:00 General: Appears uncomfortable. Pain: Complains of pain in abdomen. Pain: Pain mk currently is 5 out of 10 on a pain scale. Quality of pain is described as aching, Pain began gradually, Is continuous. Neuro: Level of Consciousness is awake, alert, obeys commands, Oriented to person, place, time, situation, Chemical Compounder are equal bilaterally Moves all extremities. Gait is steady, Speech is normal, Facial symmetry appears normal, Pupils are PERRLA, Pupil Size: 4 bilaterally Intact. Cardiovascular: Heart tones S1 S2 present Capillary refill < 3 seconds in bilateral fingers toes JVD is absent Patient's skin is warm and dry. Pulses are 2+ in right radial artery, right dorsalis pedis artery, left radial artery and left dorsalis pedis artery. Respiratory: Airway is patent Trachea midline Respiratory effort is even, unlabored, Respiratory pattern is regular, symmetrical. GI: Abdomen is flat, non-distended, Pt is actively vomiting bile, Bowel sounds present X 4 quads. Abd is soft and non tender X 4 quads. Reports upper abdominal pain, nausea, vomiting, states the pain is 'deep' so it is not tender to palpation Patient currently denies. : No signs and/or symptoms were reported regarding the genitourinary system. Derm: Skin is intact, is healthy with good turgor, Skin is dry, Skin temperature is warm. Musculoskeletal: Circulation, motion, and sensation intact. Capillary refill < 3 seconds, in bilateral fingers. toes. Range of motion: intact in all extremities. 03:00 Reassessment: No changes from previously documented assessment. Patient and/or family mk updated on plan of care and expected duration. Pain level reassessed. Patient is alert, oriented x 3, equal unlabored respirations, skin warm/dry/pink. 04:09 Reassessment: No changes from previously documented assessment. Patient and/or family mk updated on plan of care and expected duration. Pain level reassessed. Patient is alert, oriented x 3, equal unlabored respirations, skin warm/dry/pink. 05:10 Reassessment: No changes from previously documented assessment. Patient and/or family mk updated on plan of care and expected duration. Pain level reassessed. Patient is alert, oriented x 3, equal unlabored respirations, skin warm/dry/pink. Patient states feeling better. Pain:. Vital Signs: 00:15 BP 152 / 78; Pulse 84; Resp 18; Temp 98.4; Pulse Ox 96% ; Height 5 ft. 10 in. (177.80 mk cm); 02:09 BP 140 / 86; Pulse 65; Resp 18; Pulse Ox 97% on R/A; mk 04:07 BP 142 / 83; Pulse 68; Resp 17; Pulse Ox 97% on R/A; mk 05:30 BP 134 / 75; Pulse 70; Resp 18; Pulse Ox 98% on R/A; mk [place] Coma Score: 02:09 Eye Response: spontaneous(4). Verbal Response: oriented(5). Motor Response: obeys mk commands(6). Total: 15. 04:07 Eye Response: spontaneous(4). Verbal Response: oriented(5). Motor Response: obeys mk commands(6). Total: 15. 05:30 Eye Response: spontaneous(4). Verbal Response: oriented(5). Motor Response: obeys commands(6). Total: 15. ED Course: 11/23 23:57 Patient arrived in ED. [id number] 11/24 00:22 Triage completed. mk 00:32 Arm band placed on. mk 01:00 Patient has correct armband on for positive identification. Allergy band placed. Bed in mk low position. Call light in reach. Side rails up X 1. panel monitor on. Pulse ox on. NIBP on. 01:20 Inserted saline lock: 20 gauge in right forearm, using aseptic technique. 01:46 Bebo Jefferson MD is Attending Physician. [facility] 02:09 Porsche Abreu, RN is Primary Nurse. 05:48 No provider procedures requiring assistance completed. IV discontinued, intact, mk bleeding controlled, No redness/swelling at site. Administered Medications: 02:30 Drug: NS 0.9% 1000 ml Route: IV; Rate: 1000 ml; Site: right forearm; mk Outcome: 05:05 Discharge ordered by . [facility] 05:49 Discharged to home with family. 05:49 Condition: good 05:49 Discharge instructions given to patient, family. 05:51 Patient left the ED. Signatures: Bebo Jefferson MD MD [facility] Delisa Barone [id number] Porsche Abreu RN RN Corrections: (The following items were deleted from the chart) 00:22 00:15 Pulse 84bpm; Resp 18bpm; Pulse Ox 96%; Temp 98.4F; Height 5 ft. 10 in.; [facility] 00:35 00:32 PMHx: Pulmonary emphysema; [facility] 04:10 04:07 Pulse 68bpm; Resp 17bpm; Pulse Ox 97% RA; [facility] 05:49 01:00 Inserted [facility]
--- NOTE | 2021-11-24 05:05 | EDPHYS ---
Physician Documentation [facility] Name: Maldonado Reynolds Age: 66 yrs Sex: Male : 1955 Arrival Date: 11/23/2021 Time: 23:57 Bed 17 Private MD: MAGIGE Physician Bebo Jefferson HPI: 11/24 02:09 This 66 yrs old Male presents to ER via Ambulatory with complaints of Nausea/Vomiting, mh7 Abdominal Pain. 02:09 The patient presents with abdominal pain in the left upper quadrant. Onset: The mh7 symptoms/episode began/occurred last night. The symptoms do not radiate. Associated signs and symptoms: Pertinent positives: nausea and vomiting, constipation, Pertinent negatives: anorexia, blood in stools, chest pain, diarrhea, dysuria, fever, headache, hematuria, palpitations, shortness of breath, testicular pain, vomiting blood. The symptoms are described as intermittent, vague, waxing/waning. Modifying factors: The symptoms are alleviated by nothing, the symptoms are aggravated by food, touching the area. Severity of pain: At its worst the pain was moderate last night, in the emergency department the pain has resolved and did so while in waiting room. The patient has been recently been admitted at [facility], was discharged earlier this week. Patient states that he ate a lots of ham for dinner and started throwing discomfort in his left upper abdomen and had nausea and vomiting x3. Denies any chest pain, shortness of breath, fever, cough, diarrhea, dysuria.. Historical: - Home Meds: 00:32 Xarelto 15 mg oral tab 2 times per day [Active]; prednisone Oral [Active]; Wellbutrin mk 100 mg Oral tab 2 tab 2 times per day [Active]; verapamil 80 mg Oral tab 1 tab 2x daily [Active]; Nexium 40 mg Oral cpDR 1 cap once daily [Active]; azithromycin 500 mg oral tab [Active]; - PMHx: 00:32 Hypertensive disorder; mk - PSHx: 00:32 Gastric Bypass; cardiac ablasion; right foot surgery; mk - Immunization history:: Adult Immunizations up to date, Client reports receiving the 2nd dose of the Covid vaccine. - Social history:: Smoking status: . ROS: 02:09 Constitutional: Negative for fever, chills, and weight loss, Eyes: Negative for injury, mh7 pain, redness, and discharge, ENT: Negative for injury, pain, and discharge, Neck: Negative for injury, pain, and swelling, Cardiovascular: Negative for chest pain, palpitations, and edema, Respiratory: Negative for shortness of breath, cough, wheezing, and pleuritic chest pain, Back: Negative for injury and pain, : Negative for injury, bleeding, discharge, and swelling, MS/Extremity: Negative for injury and deformity, Skin: Negative for injury, rash, and discoloration, Neuro: Negative for headache, weakness, numbness, tingling, and seizure, Psych: Negative for depression, anxiety, suicide ideation, homicidal ideation, and hallucinations, Allergy/Immunology: Negative for hives, rash, and allergies, Endocrine: Negative for neck swelling, polydipsia, polyuria, polyphagia, and marked weight changes, Hematologic/Lymphatic: Negative for swollen nodes, abnormal bleeding, and unusual bruising. Exam: 02:09 Constitutional: This is a well developed, well nourished patient who is awake, alert, mh7 and in no acute distress. Head/Face: Normocephalic, atraumatic. Eyes: Pupils equal round and reactive to light, extra-ocular motions intact. Lids and lashes normal. Conjunctiva and sclera are non-icteric and not injected. Cornea within normal limits. Periorbital areas with no swelling, redness, or edema. Neck: Trachea midline, no thyromegaly or masses palpated, and no cervical lymphadenopathy. Supple, full range of motion without nuchal rigidity, or vertebral point tenderness. No Meningismus. Chest/axilla: Normal chest wall appearance and motion. Nontender with no deformity. No lesions are appreciated. Cardiovascular: Regular rate and rhythm with a normal S1 and S2. No gallops, murmurs, or rubs. Normal PMI, no JVD. No pulse deficits. Respiratory: Lungs have equal breath sounds bilaterally, clear to auscultation and percussion. No rales, rhonchi or wheezes noted. No increased work of breathing, no retractions or nasal flaring. 02:09 Back: No spinal tenderness. No costovertebral tenderness. Full range of motion. Skin: Warm, dry with normal turgor. Normal color with no rashes, no lesions, and no evidence of cellulitis. MS/ Extremity: Pulses equal, no cyanosis. Neurovascular intact. Full, normal range of motion. Neuro: Awake and alert, GCS 15, oriented to person, place, time, and situation. Cranial nerves II-XII grossly intact. Motor strength 5/5 in all extremities. Sensory grossly intact. Cerebellar exam normal. Normal gait. Psych: Awake, alert, with orientation to person, place and time. Behavior, mood, and affect are within normal limits. 02:09 Abdomen/GI: Inspection: obese Bowel sounds: normal, in all quadrants, Palpation: mild abdominal tenderness, in the left upper quadrant, mass, is not appreciated, rebound tenderness, is not appreciated, voluntary guarding, is not appreciated, involuntary guarding, is not appreciated, no appreciated organomegaly, Rectal exam: the exam is deferred, because of patient request, Indicators: McBurney's point is not tender, Kidd's sign is negative, Rovsing's sign is negative, Obturator sign is negative, Psoas sign is negative, Liver: no appreciated palpable abnormalities, Hernia: not appreciated. Vital Signs: 00:15 BP 152 / 78; Pulse 84; Resp 18; Temp 98.4; Pulse Ox 96% ; Height 5 ft. 10 in. (177.80 mk cm); 02:09 BP 140 / 86; Pulse 65; Resp 18; Pulse Ox 97% on R/A; mk 04:07 BP 142 / 83; Pulse 68; Resp 17; Pulse Ox 97% on R/A; mk 05:30 BP 134 / 75; Pulse 70; Resp 18; Pulse Ox 98% on R/A; mk [place] Coma Score: 02:09 Eye Response: spontaneous(4). Verbal Response: oriented(5). Motor Response: obeys mk commands(6). Total: 15. 04:07 Eye Response: spontaneous(4). Verbal Response: oriented(5). Motor Response: obeys mk commands(6). Total: 15. 05:30 Eye Response: spontaneous(4). Verbal Response: oriented(5). Motor Response: obeys mk commands(6). Total: 15. MDM: 05:03 Differential diagnosis: bowel obstruction, diverticulitis, gastritis, gastroesophageal mh7 reflux disease, non-specific abd pain, pancreatitis, Peptic Ulcer Disease, Pyelonephritis, Ureterolithiasis, urinary tract infection. Data reviewed: vital signs, nurses notes, old medical records, lab test result(s), amylase and lipase, cardiac enzymes, CBC, electrolytes, urinalysis, EKG, radiologic studies, CT scan. Data interpreted: Pulse oximetry: on room air is 97 %. Interpretation: normal. Counseling: I had a detailed discussion with the patient and/or guardian regarding: the historical points, exam findings, and any diagnostic results supporting the discharge/admit diagnosis, the presence of at least one elevated blood pressure reading (>120/80) during this emergency department visit, lab results, radiology results, the need for outpatient follow up, to return to the emergency department if symptoms worsen or persist or if there are any questions or concerns that arise at home. Response to treatment: the patient's symptoms have resolved after treatment, the patient's blood pressure is in an acceptable range, mental status has returned to baseline, the patient no longer shows bradycardia, the patient is not short of breath, the patient is not tachycardic, the patient's pain is gone, the patient's temperature has normalized, the patient is now symptom free, patient is well hydrated. 05:05 Patient medically screened. [facility] 11/24 02:06 Order name: Basic Metabolic Panel [facility] 11/24 02:06 Order name: CBC with Diff [facility] 11/24 02:06 Order name: Hepatic Function [facility] 11/24 02:06 Order name: Lipase [facility] 11/24 02:06 Order name: Protime (+inr) [facility] 11/24 02:06 Order name: Ptt, Activated [facility] 11/24 02:06 Order name: Troponin HS [facility] 11/24 02:19 Order name: Urine Dipstick-Ancillary; Complete Time: 02:51 [place] 11/24 02:38 Order name: Protime (+INR); Complete Time: 02:51 [facility] [place] 11/24 02:38 Order name: PTT, Activated Partial Thromb; Complete Time: 02:51 [place] 11/24 02:41 Order name: CBC with Automated Diff; Complete Time: 02:51 11/24 02:46 Order name: Urine Microscopic Only; Complete Time: 02:51 [facility] [place] 11/24 02:55 Order name: Basic Metabolic Panel; Complete Time: 03:03 11/24 02:55 Order name: Liver (Hepatic) Function; Complete Time: 03:03 [facility] 11/24 02:06 Order name: IV Saline Lock; Complete Time: 03:10 [facility] 11/24 02:06 Order name: Labs collected and sent; Complete Time: 03:10 [facility] 11/24 02:06 Order name: Urine Dipstick-Ancillary (obtain specimen); Complete Time: 03:11 [facility] 11/24 02:06 Order name: EKG; Complete Time: 05:21 [facility] 11/24 02:06 Order name: EKG - Nurse/Tech; Complete Time: 03:10 [facility] 11/24 02:07 Order name: CT Abd/Pelvis - IV Contrast Only [facility] 11/24 02:55 Order name: Troponin High Sensitivity; Complete Time: 03:03 [facility] [place] 11/24 02:55 Order name: Lipase; Complete Time: 03:03 EDMS Administered Medications: 02:30 Drug: NS 0.9% 1000 ml Route: IV; Rate: 1000 ml; Site: right forearm; mk Disposition Summary: 11/24/21 05:05 Discharge Ordered Location: Home [facility] Problem: new [facility] Symptoms: have improved [facility] Condition: Stable [facility] Diagnosis - Upper abdominal pain, unspecified [facility] - Nausea with vomiting, unspecified [facility] Followup: [facility] - With: Private Physician - When: 1 - 2 days - Reason: Worsening of condition, Recheck today's complaints, Continuance of care, Re-evaluation by your physician Discharge Instructions: - Discharge Summary Sheet [facility] - Nausea and Vomiting, Adult [facility] - Abdominal Pain, Adult, [id number] [facility] Forms: - Medication Reconciliation Form [facility] - Thank You Letter [facility] - Antibiotic Education [facility] - Prescription Opioid Use [facility] Prescriptions: - ondansetron 4 mg Oral tablet,disintegrating - place 1 tablet by TRANSLINGUAL route every 8 hours As needed; 10 tablet; [facility] Refills: 0, Product Selection Permitted - Pepcid 20 mg Oral Tablet - take 1 tablet by ORAL route every 12 hours for 5 days; 10 tablet; Refills: 0, [facility] Product Selection Permitted - dicyclomine 20 mg Oral Tablet - take 1 tablet by ORAL route 4 times per day As needed; 20 tablet; Refills: 0, [facility] Product Selection Permitted Signatures: Dispatcher [employer] Bebo Britton MD MD [facility] Porsche Abreu, RN RN isacc Corrections: (The following items were deleted from the chart) 00:35 00:32 PMHx: Pulmonary emphysema; [facility] dexter
[2021-11-24 06:02] VITALS: TEMP 98.4
[2021-11-24 06:07] VITALS: BP 134/75; O2SAT 98
--- NOTE | 2021-11-25 11:25 | RAD REPORT ---
EXAM DESCRIPTION: CT Abdomen and Pelvis With Intravenous Contrast CLINICAL HISTORY: The patient is 66 years old and is Male; ABD PAIN; NAUSEA; VOMITING recent PEs TECHNIQUE: Axial computed tomography images of the abdomen and pelvis with intravenous contrast. S agittal and coronal reformatted images were created and reviewed. This CT exam was performed using one or more of the following dose reduction techniques: automated exposure control, adjustment of t he mA and/or kV according to patient size, and/or use of iterative reconstruction technique. COMPARISON: October 30, 2017 [address] chest abdomen pelvis. CT angiography chest November 18, 2021. FINDINGS: Lung bases: Unremarkable. No mass. No consolidation. ABDOMEN: Liver: Unremarkable. No mass. Gallbladder and bile ducts: Cholelithiasis. No ductal dilation. Pancreas: No findings to suggest acute pancreatitis. No mass visualized. No ductal dilation. Spleen: Unremarkable. No splenomegaly. Adrenals: Unremarkable. No mass. Kidneys and ureters: Unremarkable. No solid mass. No hydronephrosis. Stomach and bowel: Previous gastric bypass. No bowel dilatation or obstruction. No bowel wall thickening. PELVIS: Appendix: The visualized appendix is normal. No pericecal inflammation to suggest acute appendic itis. Bladder: Unremarkable. No mass. Reproductive: Enlarged prostate gland. ABDOMEN and PELVIS: Intraperitoneal space: Unremarkable. No free air. No significant fluid collection. Bones/joints: No acute fracture visualized. No dislocation. Soft tissues: Unremarkable. Vasculature: Pulmonary arterial filling defects are decreased in conspicuity compared with the C T chest dated November 18, 2021. No abdominal aortic aneurysm. Lymph nodes: No pathologically enlarged lymph nodes. IMPRESSION: 1. Cholelithiasis. 2. Previous gastric bypass. 3. Enlarged prostate gland. 4. Pulmonary arterial filling defects are decreased in conspicuity compared with the CT chest dated November 18, 2021. 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 The interpreting r adiologist is fully responsible for the content of the report.
== END 2021-11-24 05:51 | disposition home or self-care (01) ==
LOC: ER 23:55
DX: R10.10 Upper abdominal pain, unspecified (principal); R11.2 Nausea with vomiting, unspecified; I10 Essential (primary) hypertension
CPT/HCPCS: 93005; 85025; 80048; 36415; 85610; 80076; 85730; 84484; 83690; 74177; 99284; Q9967; J7030; 81003; 81015